=== PATIENT | female | born 1970 | race Caucasian/White ===

== ENCOUNTER → 2016-07-29 | Outpatient (CLI) | payer BC ==
[~2016-07-29] MED LIST: BUPR75TA8 PO; CALC500C70 PO; CETI10TA10 PO; CITA40TA12 PO; CLC/300 PO; CLIN300C2 PO; DESV100T2 PO; DOXY100C76 PO; IBUP1CAP9 PO; LAMO25TA PO; METH1TAB81 PO; OXYC1TAB3 PO; SPR25 PO; WLLSR150 PO
[2016-07-29 13:45] LABS: BLOOD UREA NITROGEN 9 mg/dl (7-18); CREATININE 0.76 mg/dl (0.60-1.20); GLUCOSE 83 mg/dl (70-99)
[2016-07-29 13:46] LABS: ALT/SGPT 17 U/L (12-78); BUN/CREATININE RATIO 11.3 (10-20); CALCIUM 8.7 mg/dl (8.5-10.1); CARBON DIOXIDE 28 mmol/L (21-32); CHLORIDE 106 mmol/L (98-107); CHOLESTEROL 180 mg/dl (0-200); POTASSIUM 4.2 mmol/L (3.5-5.1); SODIUM 139 mmol/L (136-145); TRIGLYCERIDES 68 mg/dl (0-150); VERY LOW DENSITY LIPOPROT CALC 14 mg/dl
[2016-07-29 14:01] LABS: ALB/GLOB RATIO 1.4 (0.9-2); ALKALINE PHOSPHATASE 45 U/L (45-117); AST/SGOT 14 U/L (15-37); CHOLESTEROL/HDL RATIO 3.7; HDL CHOLESTEROL 49 mg/dl; LDL CHOLESTEROL CALCULATED 117 mg/dl
== END | disposition home or self-care (01) ==
LOC: C.LABBFT 08:11
PROVIDERS: ATTEND Nurse Practitioner
DX: Z00.00 Encounter for general adult medical examination without abnormal findings (principal); G43.909 Migraine, unspecified, not intractable, without status migrainosus; L70.9 Acne, unspecified

== ENCOUNTER 2017-01-15 06:50 | Emergency (ER) | payer BC ==
[~2017-01-15] VITALS: Ht 160 cm; Wt 81.1 kg
[~2017-01-15 06:50] MED LIST changes: -CITA40TA12 PO; -CLC/300 PO; -CLIN300C2 PO; -DOXY100C76 PO; -METH1TAB81 PO; -OXYC1TAB3 PO; -SPR25 PO; -WLLSR150 PO
[2017-01-15 06:53] VITALS: TEMP 37; Ht 160 cm; Wt 81.1 kg
[2017-01-15] MEDS ORDERED: SODIUM CHLORIDE 0.9% 1000ML 1,000 ML IV STA (07:05)
[2017-01-15] MEDS ORDERED: MoRPHine SULFATE 4 MG/ML 1 ML CARP\\VIAL IV STA (07:05)
[2017-01-15] MEDS ORDERED: CLINDAMYCIN 600 MG/54 ML D5W IV STA (07:05)
--- NOTE | 2017-01-15 07:13 | EMERGENCY ROOM VISIT NOTE ---
History First contact with patient: 06:58 Chief Complaint: DENTAL PAIN Stated Complaint: SWOLLEN CHEEK,GUMS,THROBBING TEETH FROM ROOT CANAL Nursing Triage Summary: Right upper dental pain, had a root canal on Thursday. States saw an audio visual design engineer yesterday, took one dose of antibiotics, today still with pain and increased swelling on the right side of face. History of Present Illness The patient is a 46 year old female who presents to the Emergency Room via private vehicle accompanied by female with complaints of "swollen G, gums, throbbing T root canal". The patient states that Thursday, she had a root canal on tooth #3. This is in the superior right posterior portion of her mouth. She states this was performed by [facility] endodontics. Specifically Dr. Gabriel. She states that yesterday she had swelling on the right side of the cheek, and called the endodontics office who recommended clindamycin. She has been taking ibuprofen and Tylenol without relief. She rates her current pain as a 7/10. She states that around 2:30 AM, she woke up and noted that the right side of her face was much larger than it had been in the past. She then came here for further evaluation and management. She denies any fevers, chills, pain with movement of the right eye, or chance of . She last had her dose of clindamycin at 5:30 AM this morning. This was 300 mg. She had the first dose prior. Review of Systems A complete 6-point Review of Systems was discussed with the patient, with pertinent positives and negatives listed in the History of Present Illness. All remaining Review of Systems questions can be considered negative unless otherwise specified. Past Medical/Surgical History Medical Problems: (1) Thalassemia minor Surgical Problems: (1) S/P tonsillectomy Family History No pertinent. Social History Smoking Status: Never Smoker Patient lives locally. Current/Historical Medications Scheduled Bupropion HCl (Bupropion HCl Sr), 300 MG PO QAM Citalopram Hydrobromide (Celexa), 40 MG PO QAM Clindamycin HCl (Clindamycin HCl), 300 MG PO QID Spironolactone (Spironolactone), 50 MG PO AMPM Scheduled PRN Oxycodone Ir (Roxicodone Ir), 1-2 TAB PO Q6 PRN for Pain Physical Exam Vital Signs Date Time Temp Pulse Resp B/P (MAP) Pulse Ox O2 Delivery O2 Flow Rate FiO2 01/15/17 08:12 60 15 134/79 100 Room Air 01/15/17 06:53 37.0 81 16 121/68 97 Room Air Physical Exam VITAL SIGNS - Vital signs and nursing notes were reviewed. Stable. GENERAL -46-year-old female appearing her stated age who is in no acute distress. Communicates well with provider and answers questions appropriately. SKIN - Without rashes. There is no erythema to the skin of the face, rather there is a large amount of edema of the right cheek. This extends from the angle of the mandible, to the chin up to the right eye region. HEAD - NC/AT. No davila signs or raccoons eyes. EYES - PERRL with EOMI bilaterally. Sclera anicteric. No hyphema. EARS - No deformities of external structures noted on gross examination bilaterally. No pain elicited with palpation of the tragus bilaterally. Unremarkable. NOSE - Midline and without cyanosis. No epistaxis or purulent drainage noted. Septum midline without deviation or septal hematoma noted. MOUTH/OROPHARYNX - Without perioral cyanosis. Buccal mucosa pink and moist and without leukoplakia. Tongue midline with equal elevation of palate bilaterally. No tonsillar hypertrophy, erythema, or exudates noted. Fair dentition noted. NECK - Neck with FROM. Supple to palpation. Minimal anterior cervical lymphadenopathy noted. No nuchal rigidity. LUNGS - Chest wall symmetric without accessory muscle use, intercostals retractions, or central cyanosis. Normal vesicular breath sounds CTA B/L. No wheezes, rales, or rhonchi appreciated. CARDIAC - RRR with S1/S2. No murmur, rubs, or gallops appreciated. NEUROLOGIC - Cranial nerves II through XII grossly intact. Sensory intact to light touch throughout. Medical Decision & Procedures Laboratory Results 01/15/17 07:16 Red Blood Count 5.06, Mean Corpuscular Volume 62.8, Mean Corpuscular Hemoglobin 19.8, Mean Corpuscular Hemoglobin Concent 31.4, Neutrophils (%) (Auto) 79.4, Lymphocytes (%) (Auto) 9.5, Monocytes (%) (Auto) 9.5, Eosinophils (%) (Auto) 1.2 , Basophils (%) (Auto) 0.1, Neutrophils # (Auto) 8.41, Lymphocytes # (Auto) 1.01 , Monocytes # (Auto) 1.01, Eosinophils # (Auto) 0.13, Basophils # (Auto) 0.01 01/15/17 07:16 Test 01/15/17 07:16 White Blood Count 10.60 K/uL (4.8-10.8) Red Blood Count 5.06 M/uL (4.2-5.4) Hemoglobin 10.0 g/dL (12.0-16.0) Hematocrit 31.8 % (37-47) Mean Corpuscular Volume 62.8 fL (80-100) Mean Corpuscular Hemoglobin 19.8 pg (25-34) Mean Corpuscular Hemoglobin Concent 31.4 g/dl (32-36) Platelet Count 357 K/uL (130-400) Neutrophils (%) (Auto) 79.4 % Lymphocytes (%) (Auto) 9.5 % Monocytes (%) (Auto) 9.5 % Eosinophils (%) (Auto) 1.2 % Basophils (%) (Auto) 0.1 % Neutrophils # (Auto) 8.41 K/uL (1.4-6.5) Lymphocytes # (Auto) 1.01 K/uL (1.2-3.4) Monocytes # (Auto) 1.01 K/uL (0.11-0.59) Eosinophils # (Auto) 0.13 K/uL (0-0.5) Basophils # (Auto) 0.01 K/uL (0-0.2) RDW Standard Deviation 36.7 fL (36.4-46.3) RDW Coefficient of Variation 16.3 % (11.5-14.5) Immature Granulocyte % (Auto) 0.3 % Immature Granulocyte # (Auto) 0.03 K/uL (0.00-0.02) Hypogranular Neutrophils 1+ Hypersegmented Polys 1+ Microcytosis PRESENT Tear Drop Cells 1+ Ovalocytes 1+ Anion Gap 4.0 mmol/L (3-11) Est Creatinine Clear Calc Drug Dose 104.9 ml/min Estimated GFR () 122.7 Estimated GFR (Non- 105.9 BUN/Creatinine Ratio 9.6 (10-20) Calcium Level 9.0 mg/dl (8.5-10.1) Total Bilirubin 1.1 mg/dl (0.2-1) Aspartate Amino Transf (AST/SGOT) 15 U/L (15-37) Alanine Aminotransferase (ALT/SGPT) 22 U/L (12-78) Alkaline Phosphatase 62 U/L (45-117) Total Protein 7.5 gm/dl (6.4-8.2) Albumin 3.9 gm/dl (3.4-5.0) Globulin 3.6 gm/dl (2.5-4.0) Albumin/Globulin Ratio 1.1 (0.9-2) Medications Administered Medications (Trade) Dose Ordered Sig/Binh Route Start Time Stop Time Status Last Admin Dose Admin Sodium Chloride 1,000 ml @ 999 mls/hr Q1H1M STAT IV 01/15/17 07:05 01/15/17 08:05 DC 01/15/17 07:18 999 MLS/HR Morphine Sulfate (MoRPHine SULFATE INJ) 4 mg NOW STAT IV 01/15/17 07:05 01/15/17 07:09 DC 01/15/17 07:19 4 MG Clindamycin Phosphate (Cleocin 600mg/ 54ml D5W) 600 mg NOW STAT IV 01/15/17 07:05 01/15/17 07:09 DC 01/15/17 07:24 600 MG Oxycodone HCl (Roxicodone Immediate Rel Tab) 5 mg NOW STAT PO 01/15/17 08:05 01/15/17 08:06 DC 01/15/17 08:12 5 MG Medical Decision Patient was seen and evaluated as above. She presents to us today with right- sided facial swelling. This acutely worsened this morning around 2:30 AM. She had her last dose of clindamycin at 5:30 AM. Her vital signs are stable, and she is afebrile. She rates her pain as a 7/10. She will be given 600 mg of Clindamycin IV, to increase her overall load of clindamycin, as well as morphine for her pain. She was given normal saline. On examination there is cheek swelling, but her vital signs are stable. There is no concerning leukocytosis on her blood work. Because she had 300 mg earlier today, I believe the sixth her milligram intravenous dose will be the best option, as she is penicillin allergic. She is also allergic to sulfa drugs. The maximum dose of clindamycin per day is 2700 mg. I believe that if she continues the rest of clindamycin is 300 mg every 6 following this administration she will stay safely within this dosing range. I recommended she call her audio visual design engineer to schedule follow-up regarding today's visit for recheck. At this time she does not meet any criteria for admission, and is well on examination. She was feeling slightly better with pain medication, and was offered more IV pain medication, but preferred to have the pill form that I was going to send her home with. She was felt stable for discharge. She was given 1 oxycodone IR will be discharged home with a short prescription for this. She is to return with worsening. It was identified that she was able to call her audio visual design engineer to schedule follow-up later in the day. She was educated upon management, educated upon worrisome symptoms in which to return, had questions answered prior to discharge, and was discharged. Her lab work was discussed with her. In evaluation treatment this patient following differential diagnoses were entertained: Abscess, cellulitis, postoperative swelling, among others. Impression Primary Impression: Odontalgia Additional Impression: Anemia Departure Information Dispostion Home / Self-Care Condition GOOD Prescriptions Oxycodone Ir (Roxicodone Ir) 5 Mg Tab 1-2 TAB PO Q6 Y for Pain, #15 TAB For Initial Treatment Prov: Rolf Carraqsuillo PA-C 01/15/17 Referrals Jeny Mosher, C.R.N.PAdan (PCP) Patient Instructions My [facility] Additional Instructions You have been treated in the Emergency Department for Dental Pain. You have received pain medicine in the emergency department which impairs your ability to operate a vehicle. It is illegal for you to drive after receiving these medicines. You have been prescribed Oxy IR to be used for pain control. This is a narcotic medication. You cannot drive or consume alcohol while on this medicine. This medicine should only be used for pain that cannot be controlled with over-the- counter pain medicines. Be careful as these may interact with your other medications. You were previously prescribed clindamycin to be taken as previously prescribed. This is an antibiotic. All antibiotics have the potential to cause diarrhea. Stop this medication and contact a medical provider if you were to develop any significant adverse side effects including: wheezing, shortness of breath, passing out, vomiting, or a diffuse rash. Always take antibiotics as directed and COMPLETE the ENTIRE course regardless of the improvement of your symptoms. For pain control, you can use the following [id number] medicines (if >12 yo): He may continue the medications recommended to buy the audio visual design engineer. Refrain from smoking cigarettes or using chewing tobacco until you have been evaluated by your dentist. Keeping beverages lukewarm and consuming soft foods can decrease your pain. Warm compresses over the affected area may offer some relief. Please call the audio visual design engineer office as soon as possible to schedule follow-up from today's visit regarding your procedure there. Return to the emergency department if you develop the following symptoms despite treatment course outlined above: fever, intractable pain, increased redness, swelling, or purulent discharge. As we discussed if this would worsen please return immediately. Problem Qualifiers
[2017-01-15] MEDS ORDERED: CLC/300 PO (07:14)
[2017-01-15] MEDS ORDERED: WLLSR150 PO (07:14)
[2017-01-15] MEDS ORDERED: CITA40TA12 PO (07:14)
[2017-01-15] MEDS ORDERED: SPR25 PO (07:14)
[2017-01-15 07:25] LABS: BASO % 0.1 %; BASO ABS # 0.01 K/uL (0-0.2); EOS % 1.2 %; HEMATOCRIT 31.8 % (37-47); IG% 0.3 %; LYMPH % 9.5 %; LYMPH ABS # 1.01 K/uL (1.2-3.4); MEAN CELL VOLUME 62.8 fL (80-100); MEAN CORPUSCULAR HEMOGLOBIN 19.8 pg (25-34); MEAN CORPUSCULAR HGB CONC 31.4 g/dl (32-36); MONO % 9.5 %; NEUT % 79.4 %; PLATELET COUNT 357 K/uL (130-400); RED BLOOD COUNT 5.06 M/uL (4.2-5.4)
[2017-01-15 07:45] LABS: BUN/CREATININE RATIO 9.6 (10-20); CREATININE 0.69 mg/dl (0.60-1.20); POTASSIUM 3.8 mmol/L (3.5-5.1)
[2017-01-15 07:48] LABS: ALB/GLOB RATIO 1.1 (0.9-2)
[2017-01-15 07:56] LABS: COMPLETE YES; HYPERSEGMENTED POLYS 1+; MICROCYTOSIS PRESENT; OVALOCYTES 1+; TEAR DROP CELLS 1+
[2017-01-15] MEDS ORDERED: OXYCODONE HCL IR 5 MG TAB (IMMEDIATE RELEASE) PO STA (08:05)
[2017-01-15] MEDS ORDERED: OXYC1TAB3 PO (08:06)
[2017-01-15 08:12] VITALS: BP 134/79; PULSE 60; O2SAT 100
--- NOTE | 2017-01-15 12:36 | Pharmacy Progress Note ---
ED Pharmacist Progress Note Date of Service: Jan 15, 2017. Mother called in asking what IV medication were administered to daughter during ER visit. I asked to speak with daughter to confirm she gave permission for me to reveal this information to her mother, to which she consented. I then informed her that NS, clindamycin, and morphine had been given IV.
== END 2017-01-15 08:20 | disposition home or self-care (01) ==
LOC: C.EDB 06:52
DX: K08.89 Other specified disorders of teeth and supporting structures (principal); D64.9 Anemia, unspecified; Z79.899 Other long term (current) drug therapy

== ENCOUNTER 2017-01-23 01:49 | Inpatient (IN) | payer BC ==
[~2017-01-23] VITALS: Ht 160 cm; Wt 78.7 kg
[~2017-01-23 01:49] MED LIST changes: -BUPR75TA8 PO; -CALC500C70 PO; -CETI10TA10 PO; +CITA40TA12 PO; +CLC/300 PO; -DESV100T2 PO; -IBUP1CAP9 PO; -LAMO25TA PO; +OXYC1TAB3 PO; +SPR25 PO; +WLLSR150 PO
[2017-01-23] MEDS ORDERED: ONDANSETRON INJ 2 MG/ML 2 ML VIAL IV STA (02:04)
[2017-01-23] MEDS ORDERED: METRONIDAZOLE 500MG / 100ML NSS IV STA (02:04)
[2017-01-23] MEDS ORDERED: CEFTRIAXONE SOD INJ 1 GM ADDVIAL IV STA (02:04)
[2017-01-23] MEDS ORDERED: MoRPHine SULFATE 4 MG/ML 1 ML CARP\\VIAL IV ONE ×3 (02:15→05:30)
[2017-01-23] MEDS ORDERED: CLINDAMYCIN IV 900 MG in DEXTROSE 5% 100ML 100 ML IV ONE (02:15)
[2017-01-23] MEDS ORDERED: SODIUM CHLORIDE 0.9% 1000ML 1,000 ML IV ONE (02:15)
[2017-01-23] MEDS ORDERED: OPTIRAY 320 IV PRN (02:15)
[2017-01-23] MEDS ORDERED: OXYC1TAB3 PO (02:53)
[2017-01-23] MEDS ORDERED: METH1TAB81 PO (02:53)
[2017-01-23 03:03] LABS: BASO % 0.2 %; BASO ABS # 0.02 K/uL (0-0.2); EOS % 0.4 %; HEMATOCRIT 28.1 % (37-47); IG% 0.2 %; LYMPH % 6.7 %; LYMPH ABS # 0.83 K/uL (1.2-3.4); MEAN CELL VOLUME 61.5 fL (80-100); MEAN CORPUSCULAR HEMOGLOBIN 19.9 pg (25-34); MEAN CORPUSCULAR HGB CONC 32.4 g/dl (32-36); MONO % 7.4 %; NEUT % 85.1 %; PLATELET COUNT 475 K/uL (130-400); RED BLOOD COUNT 4.57 M/uL (4.2-5.4); WHITE BLOOD COUNT 12.36 K/uL (4.8-10.8)
[2017-01-23 03:21] LABS: BUN/CREATININE RATIO 16.2 (10-20); CALCIUM 8.5 mg/dl (8.5-10.1); CREATININE 0.61 mg/dl (0.60-1.20); POTASSIUM 3.8 mmol/L (3.5-5.1)
[2017-01-23 03:29] LABS: COMPLETE YES; HYPOCHROMIA PRESENT; MICROCYTOSIS PRESENT; OVALOCYTES 1+
[2017-01-23] MEDS ORDERED: MAGNESIUM HYDROXIDE SUSP 30 ML UDC PO PRN (05:45)
[2017-01-23] MEDS ORDERED: CLINDAMYCIN IV 900 MG in DEXTROSE 5% 100ML 100 ML IV SCH (05:45)
[2017-01-23] MEDS ORDERED: ALUMINUM/MAGNESIUM/SIMETH (MAALOX MAX) 30 ML UDC PO PRN (05:45)
[2017-01-23] MEDS ORDERED: ONDANSETRON INJ 2 MG/ML 2 ML VIAL IV PRN (05:45)
[2017-01-23] MEDS ORDERED: POLYETHYLENE (MIRALAX) 17 GM PACK PO PRN (06:00)
--- NOTE | 2017-01-23 06:07 | History and Physical ---
History & Physical Date & Time of Service: Jan 23, 2017 at 05:51 Chief Complaint: Face Swelling Primary Care Physician: Jeny Mosher C.R.N.P. History of Present Illness Source: patient, family (mother) The patient is a pleasant 46 year old female with a history of thalassemia, depression who presents with worsening facial swelling on the right side of her face. The patient reports acutely worsening right facial pain and swelling. She reports an achy/sharp pain 8/10 to the right face in the maxillary area. She feels it under her eye and in front of the right ear. She feels some tension in her neck but no pain She denies any shortness of breath, denies her throat closing off. She was seen the ED 10 days ago. For dental pain following a root canal on the right superior jaw. She was started on Clindamycin by her dentist. She was seen at the ED who recommended continuing the antibiotics and schedule outpatient follow-up with her dentist. She saw her dentist 2 days and states that they did some dental manipulation and recommended she continue on with antibiotics until completion. Since then she feels the swelling in her face has been steadily worsening in addition to the pain. She also arrives on Medrol Dose-abran. In the ED a CT scan of her face showed a right sided facial abscess in addition to submandibular swelling. She is being admitted for failed outpatient antibiotic treatment Past Medical/Surgical History Medical Problems: (1) Thalassemia minor Status: Chronic Surgical Problems: (1) S/P tonsillectomy Status: Resolved Social History Smoking Status: Never Smoker Smokeless Tobacco Use: No Alcohol Use: none Drug Use: none Marital Status: single Housing status: lives with family Occupational Status: employed ([employer]) Immunizations History of Influenza Vaccine: Yes History of Tetanus Vaccine?: Unknown History of Pneumococcal: No History of Hepatitis B Vaccine: No Allergies Coded Allergies: Penicillins (Verified Allergy, Unknown, RASH, 01/23/17) Sulfa Drugs (Verified Allergy, Unknown, Hives, 01/23/17) Home Medications Scheduled Bupropion HCl (Bupropion HCl Sr), 300 MG PO QAM Citalopram Hydrobromide (Celexa), 40 MG PO QAM Clindamycin HCl (Clindamycin HCl), 300 MG PO QID Methylprednisolone (Medrol), 4 MG PO DIRECTED Spironolactone (Spironolactone), 50 MG PO AMPM Scheduled PRN Oxycodone Immediate Rel Tab (Roxicodone Ir), 1-2 TAB PO Q6H PRN for Severe Pain Review of Systems Constitutional: No fever, No chills, No sweats Eyes: No eye pain, No redness, No discharge, No diplopia ENT: No hearing loss, No sore throat, No tinnitus Respiratory: No sputum, No wheezing, No shortness of breath, No dyspnea on exertion, No dyspnea at rest Cardiovascular: No chest pain, No claudication, No palpitations Abdomen: No nausea, No vomiting, No diarrhea, No constipation Musculoskeletal: No joint pain, No muscle pain, No swelling, No calf pain Genitourinary - Female: No urinary frequency, No urinary urgency, No urinary incontinence Neurologic: No memory loss, No numbness/tingling, No vertigo Endocrine: No fatigue, No excessive thirst, No excessive urination Hematologic / Lymphatic: No abnormal bleeding/bruising, No swollen lymph nodes , No night sweats Integumentary: No rash, No new/changing skin lesions, No color change Physical Exam Vital Signs Date Time Temp Pulse Resp B/P (MAP) Pulse Ox O2 Delivery O2 Flow Rate FiO2 01/23/17 04:59 74 01/23/17 04:53 100 Room Air 01/23/17 04:14 80 18 136/71 97 Room Air 01/23/17 01:51 37.4 85 16 144/92 98 Room Air General Appearance: WD/WN, no apparent distress, + mild distress Head: normocephalic, atraumatic Eyes: EOMI (swelling under right eye; but no double vision or pain with right eye movement), + pertinent finding ENT: TMs normal, + trismus, + pertinent finding (Right maxillary swelling, warmth, and tenderness; tender submandibular area on the right side) Respiratory/Chest: chest non-tender, lungs clear, no respiratory distress Cardiovascular: regular rate, rhythm, no gallop, no murmur Abdomen/GI: normal bowel sounds, non tender, soft Back: no CVA tenderness, no muscle spasm Extremities/Musculoskelatal: no calf tenderness, no pedal edema Neurologic/Psych: alert, normal mood/affect, oriented x 3 Skin: normal color, warm/dry, no rash Lymphatic: no adenopathy Diagnostics Laboratory Results Results Past 24 Hours Test 01/23/17 02:25 01/23/17 02:43 Range/Units White Blood Count 12.36 4.8-10.8 K/uL Red Blood Count 4.57 4.2-5.4 M/uL Hemoglobin 9.1 12.0-16.0 g/dL Hematocrit 28.1 37-47 % Mean Corpuscular Volume 61.5 80-100 fL Mean Corpuscular Hemoglobin 19.9 25-34 pg Mean Corpuscular Hemoglobin Concent 32.4 32-36 g/dl Platelet Count 475 130-400 K/uL Neutrophils (%) (Auto) 85.1 % Lymphocytes (%) (Auto) 6.7 % Monocytes (%) (Auto) 7.4 % Eosinophils (%) (Auto) 0.4 % Basophils (%) (Auto) 0.2 % Neutrophils # (Auto) 10.51 1.4-6.5 K/uL Lymphocytes # (Auto) 0.83 1.2-3.4 K/uL Monocytes # (Auto) 0.92 0.11-0.59 K/uL Eosinophils # (Auto) 0.05 0-0.5 K/uL Basophils # (Auto) 0.02 0-0.2 K/uL RDW Standard Deviation 34.8 36.4-46.3 fL RDW Coefficient of Variation 15.9 11.5-14.5 % Immature Granulocyte % (Auto) 0.2 % Immature Granulocyte # (Auto) 0.03 0.00-0.02 K/uL Hypochromasia PRESENT Microcytosis PRESENT Ovalocytes 1+ Sodium Level 138 136-145 mmol/L Potassium Level 3.8 3.5-5.1 mmol/L Chloride Level 105 98-107 mmol/L Carbon Dioxide Level 26 21-32 mmol/L Anion Gap 7.0 3-11 mmol/L Blood Urea Nitrogen 10 7-18 mg/dl Creatinine 0.61 0.60-1.20 mg/dl Est Creatinine Clear Calc Drug Dose 116.9 ml/min Estimated GFR () 127.8 Estimated GFR (Non- 110.3 BUN/Creatinine Ratio 16.2 10-20 Random Glucose 96 70-99 mg/dl Calcium Level 8.5 8.5-10.1 mg/dl Total Bilirubin 0.6 0.2-1 mg/dl Aspartate Amino Transf (AST/SGOT) 6 15-37 U/L Alanine Aminotransferase (ALT/SGPT) 16 12-78 U/L Alkaline Phosphatase 72 45-117 U/L Total Protein 7.0 6.4-8.2 gm/dl Albumin 3.5 3.4-5.0 gm/dl Globulin 3.5 2.5-4.0 gm/dl Albumin/Globulin Ratio 1.0 0.9-2 Bedside Lactic Acid Venous 0.80 0.90-1.70 mmol/L Microbiology Results 01/23/17 Blood Culture, Received Pending 01/23/17 Blood Culture, Received Pending Diagnostic Radiology Right-sided facial abscess; in-house report pending Impression Assessment and Plan 46 year old female with right maxillary abscess with submandibular swelling post -root canal 10 days prior. She has failed outpatient antibiotic therapy. Our plan for her is as follows: Right Maxillary Abscess - NPO - IVF NSS at 125 ml/hr - Start IV Primaxin with reflex ID consult - Consult Oromaxillary surgery for further recommendations - Patient came in Methylprednisolone taper: was suppose to get 12 mg PO today -- > 8 mg PO tomorrow 4 mg PO day after Will D/C medrol and give 15 mg IV solu-medrol today; taper per primary team Right Submandibular Swelling - Normal respiratory status at this time - Monitor closely in telemetry - Consult ENT Thyroid Nodule - Incidental; per day team to work-up Depression - Continue Wellbutrin - Continue Celexa Acne - Continue Spironolactone DVT Prophylaxis - SCD Knee, YAYA Hose Code Status - Level I Full Code Disposition - Telemetry to monitor for airway stability Resident Physician Supervision Note: I was present with Dr. Castillo during the history and exam. I discussed the case with the resident and agree with the findings and plan as documented in the note. Any exceptions or clarifications are listed here: 46 y/o F Hx Thalassemia, depression - dental procedure 10 days prior - presents with R facial swelling and pain - had been taking Clinda for [address] indicates Maxillary abscess - pt has considerable submandibular swelling as well - concern for airway compromise OE AAO x 3 Considerable swelling from neck to periorbital area on R S1,2 R CTAB NT, ND No CCE P: Placed on Primaxin due to allergies - will be evaluated by ENT - pt may require transfer if maxillofacial surgeon is not available. Monitor airway on telemetry Documented By: Jose Mcgill Level of Care Telemetry Resuscitation Status FULL RESUSCITATION VTE Prophylaxis VTE Risk Assessment Done? Y/N: Yes Risk Level: Moderate Given or contraindicated: T.E.D. Stockings, SCD's
[2017-01-23] MEDS ORDERED: IV FLUIDS COMPLETED PRN (06:30)
[2017-01-23] MEDS ORDERED: METHYLPREDNISOLONE IV 15 MG in SYRINGE 0 ML IV SCH (07:15)
--- NOTE | 2017-01-23 07:47 | DIAGNOSTIC IMAGING REPORT ---
SOFT TISSUE NECK WITH CLINICAL HISTORY: 46 years-old Female presenting with Right side facial swelling/dental infx?. TECHNIQUE: Multidetector CT of the neck was performed after the administration of intravenous contrast. IV contrast: 110 mL of Optiray 320. A dose lowering technique was used consistent with the principles of ALARA (as low as reasonably achievable). COMPARISON: 04/29/2011. CT DOSE (mGy.cm): The estimated cumulative dose is 576.55 mGy.cm. FINDINGS: Investigator Vice topogram: Unremarkable. Mucosal thickening in the right maxillary sinus and minimally in the left maxillary sinus. Extensive inflammatory change along the right face with a focal rim-enhancing 2.7 x 1.8 cm fluid collection along the buccal aspect of the right maxilla, consistent with abscess. No apparent cortical defect in the adjacent maxilla or lateral wall of the right maxillary sinus. Minimal periapical lucency noted at the right maxillary second molar, which may be the source of the presumed odontogenic infection. No other periapical abscess is noted in the maxillary or mandibular teeth. Deep tissue planes of the face are preserved. The fat within the right pterygopalatine fossa is preserved although the fluid collection minimally tracks toward the right lateral pterygoid muscle. Multiple prominent lymph nodes, right greater than left, likely reactive. Mild subcutaneous infiltration extends to the submandibular region but not to the superior mediastinum. Retropharyngeal space preserved. Vessels patent. Subcentimeter nodule in the right thyroid lobe as well as a few additional tiny thyroid nodules. Limited intracranial evaluation within normal limits. Cervical spine normal. Lung apices clear. IMPRESSION: Findings most consistent with odontogenic abscess in the right maxillary region measuring up to 2.7 cm. This is associated with adjacent periapical lucency/periapical abscess at the right maxillary second molar, which is the presumed source of infection, though no cortical breakthrough in the maxilla is apparent. Reactive lymph nodes. Electronically signed by: Arnoldo Torres M.D. 01/23/2017 7:46 AM Dictated Date/Time: 01/23/2017 7:38 AM
[2017-01-23 07:51] VITALS: BP 135/81; PULSE 74; TEMP 37.5; O2SAT 97
[2017-01-23 08:00] VITALS: BP 135/81; PULSE 74; TEMP 37.5; O2SAT 97; Ht 160 cm; Wt 78.7 kg
[2017-01-23] MEDS: SPIRONOLACTONE 25 MG TAB PO SCH ×2 (08:00→16:47)
[2017-01-23] MEDS: CITALOPRAM 40 MG TAB PO SCH (09:22)
[2017-01-23] MEDS: BuPROPion SR 150 MG TABCR PO SCH (09:22)
[2017-01-23] MEDS: NSS + 20MEQ KCL 1000ML 1,000 ML IV SCH ×2 (09:22→15:23)
[2017-01-23] MEDS: MoRPHine SULFATE 4 MG/ML 1 ML CARP\\VIAL IV PRN ×3 (09:23→15:42)
[2017-01-23] MEDS: IMIPENEM/CILASTATIN IV 500 MG in DEXTROSE 5% 100ML 100 ML IV SCH ×3 (09:23→20:43)
--- NOTE | 2017-01-23 10:19 | Progress Note ---
Progress Note Date of Service Jan 23, 2017. Progress Note ID Consult Dictated #[id number] A/P: 1. R maxillary abscess 2. Leukocytosis -Continue Imipenem for now, add vanco -Will likely need surgical intervention with abx for cure, ? ENT vs OMFS -Please send fluid for culture, blood cultures pending -thank you
[2017-01-23] MEDS ORDERED: VANCOMYCIN CONSULT ACTIVE PRN (10:45)
[2017-01-23] MEDS ORDERED: VANCOMYCIN INJ 2,000 MG in SODIUM CHLORIDE 0.9% 500ML 500 ML IV SCH (11:00)
[2017-01-23] MEDS ORDERED: PANTOprazole INJ 40 MG in SYRINGE 0 ML IV ONE (11:45)
--- NOTE | 2017-01-23 11:57 | INFECT. DISEASE CONSULTATION ---
DATE OF CONSULTATION: 01/23/2017 REQUESTING PHYSICIAN: Dr. Mcgill. HISTORY OF PRESENT ILLNESS: This is a 46-year-old female who was admitted to the hospital with worsening facial swelling. She had a root canal done as an outpatient last Thursday. She followed up 1 day afterwards because she had pain and facial swelling. She was placed on oral clindamycin and was taking this at home. She states Thursday and , she felt somewhat better, but throughout the end of last week and through the weekend, she had worsening facial pain and swelling. She did present here to the ER and was discharged home with plans to continue clindamycin and follow up with her dentist. She states that she followed up with her dentist yesterday and they did see a small opening with drainage in the dental office. She continued to have worsening symptoms and significant facial swelling that caused closure of her right eye and she presented back to the Emergency Room. She did undergo a CAT scan yesterday, which showed a 2.7 x 1.8 cm right axilla abscess. Her white blood cell count was elevated at 12.3. She has been afebrile. She was placed on imipenem empirically and infectious disease was consulted for imipenem use. She currently has significant pain. She does not have an appetite. She is n.p.o. for questionable surgical exploration. An ear, nose, and throat consultation is pending. She denies any fevers or chills. She denies any difficulty with breathing or swallowing. She denies any drainage into the mouth. Her only complaint is her pain and swelling. She denies chest pain, cough, shortness of breath, nausea, vomiting or diarrhea. She was tolerating clindamycin well. PAST MEDICAL HISTORY: Significant for thalassemia. PAST SURGICAL HISTORY: Significant for tonsillectomy done last week. SOCIAL HISTORY: Negative for tobacco use, alcohol use or drug use. ALLERGIES: SHE HAS ALLERGIES TO PENICILLIN AND SULFA, WHICH CAUSED HIVES. MEDICATIONS: Include Wellbutrin, Celexa, spironolactone, imipenem, potassium, MiraLax, Tylenol, Maalox, milk of magnesia, Zofran and morphine. PHYSICAL EXAMINATION: VITAL SIGNS: She is afebrile, pulse 74, respiratory rate 18, blood pressure 135/81, and oxygen saturation is 97%-100% on room air. GENERAL: She is awake, alert and oriented x3. She is in mild distress secondary to right facial pain and swelling. HEENT: She does have an ice pack over her right side of her face. She has significant facial edema and this is tender to light touch. There is no erythema. There is no open area. Her eye is swollen shut. She is able to open her mouth and mucous membranes are dry. HEART: Regular. LUNGS: Clear. ABDOMEN: Soft, nontender, and nondistended. EXTREMITIES: There is no bilateral lower extremity edema. SKIN: Without rash. LABORATORY STUDIES: CBC reveals a white blood cell count of 12.3, hemoglobin is 9.1 and platelets are 475. Chemistry panel reveals a sodium of 138, potassium 3.8, chloride 105, bicarbonate 26, BUN 10, creatinine 0.6, and glucose is 96. LFTs are within normal limits. Blood cultures are pending. IMAGING: As above. ASSESSMENT AND PLAN: 1. Right maxillary abscess, status post root canal. 2. Leukocytosis. I will add vancomycin in addition to imipenem. She may benefit from surgical exploration either by maxillofacial surgery and/or ENT. We will follow along with you. Thank you for this consultation.
--- NOTE | 2017-01-23 13:10 | Pharmacy Progress Note ---
Pharmacy Antibiotic Consult Date of Service: Jan 23, 2017. Pharmacy Dosing Scope * Pharmacy is consulted to initiate Vancomycin IV dosing therapy, order appropriate labs and adjust drug dose/frequency. Subjective * The patient is a 46 year old female admitted on Jan 23, 2017 at 05:37 with right maxillary abscess. Objective Height (Feet): 5 Height (Inches): 3.00 Weight (Kilograms): 78.700 Lab Results (24hrs): Test 01/23/17 02:25 01/23/17 02:43 White Blood Count 12.36 K/uL (4.8-10.8) Red Blood Count 4.57 M/uL (4.2-5.4) Hemoglobin 9.1 g/dL (12.0-16.0) Hematocrit 28.1 % (37-47) Mean Corpuscular Volume 61.5 fL (80-100) Mean Corpuscular Hemoglobin 19.9 pg (25-34) Mean Corpuscular Hemoglobin Concent 32.4 g/dl (32-36) Platelet Count 475 K/uL (130-400) Neutrophils (%) (Auto) 85.1 % Lymphocytes (%) (Auto) 6.7 % Monocytes (%) (Auto) 7.4 % Eosinophils (%) (Auto) 0.4 % Basophils (%) (Auto) 0.2 % Neutrophils # (Auto) 10.51 K/uL (1.4-6.5) Lymphocytes # (Auto) 0.83 K/uL (1.2-3.4) Monocytes # (Auto) 0.92 K/uL (0.11-0.59) Eosinophils # (Auto) 0.05 K/uL (0-0.5) Basophils # (Auto) 0.02 K/uL (0-0.2) RDW Standard Deviation 34.8 fL (36.4-46.3) RDW Coefficient of Variation 15.9 % (11.5-14.5) Immature Granulocyte % (Auto) 0.2 % Immature Granulocyte # (Auto) 0.03 K/uL (0.00-0.02) Hypochromasia PRESENT Microcytosis PRESENT Ovalocytes 1+ Sodium Level 138 mmol/L (136-145) Potassium Level 3.8 mmol/L (3.5-5.1) Chloride Level 105 mmol/L (98-107) Carbon Dioxide Level 26 mmol/L (21-32) Anion Gap 7.0 mmol/L (3-11) Blood Urea Nitrogen 10 mg/dl (7-18) Creatinine 0.61 mg/dl (0.60-1.20) Est Creatinine Clear Calc Drug Dose 116.9 ml/min Estimated GFR () 127.8 Estimated GFR (Non- 110.3 BUN/Creatinine Ratio 16.2 (10-20) Random Glucose 96 mg/dl (70-99) Calcium Level 8.5 mg/dl (8.5-10.1) Total Bilirubin 0.6 mg/dl (0.2-1) Aspartate Amino Transf (AST/SGOT) 6 U/L (15-37) Alanine Aminotransferase (ALT/SGPT) 16 U/L (12-78) Alkaline Phosphatase 72 U/L (45-117) Total Protein 7.0 gm/dl (6.4-8.2) Albumin 3.5 gm/dl (3.4-5.0) Globulin 3.5 gm/dl (2.5-4.0) Albumin/Globulin Ratio 1.0 (0.9-2) Bedside Lactic Acid Venous 0.80 mmol/L (0.90-1.70) Micro Results: * Blood cultures are pending Recent Pertinent Medications * Patient is also receiving Primaxin 500mg IV every 6 hours. Assessment & Plan Loading dose: 2000 mg IV X 1 (~ 25mg/kg) dose then 1500mg IV (~19mg/kg) every 10 hours. Goal peak level estimate: between 30-40 mcg/mL. Goal trough level estimate: between 16-20 mcg/mL. Trough level is ordered for 1929 on 01/24/17 just prior to the 4th dose. Pharmacy will continue to follow and will adjust dose/frequency as necessary. Thank you
[2017-01-23] MEDS ORDERED: LIDOCAINE/EPINEPHRINE 1% 20 ML VIAL INJ ONE (13:45)
[2017-01-23] MEDS ORDERED: NURSING VERBAL MED ORDER ONE (13:45)
[2017-01-23] MEDS ORDERED: MoRPHine SULFATE 2 MG/ML CARP ONE (13:57)
[2017-01-23] MEDS ORDERED: CETIRIZINE HCL 10 MG TAB PO ONE (14:00)
[2017-01-23] MEDS ORDERED: MoRPHine SULFATE 2 MG/ML CARP IV ONE (14:00)
[2017-01-23] MEDS ORDERED: MoRPHine SULFATE 2 MG/ML CARP IV PRN (14:00)
[2017-01-23 15:21] VITALS: BP 114/68; PULSE 76; TEMP 37.2; O2SAT 95
--- NOTE | 2017-01-23 15:49 | CONSULTATION REPORT ---
DATE OF CONSULTATION: 01/23/2017 DATE OF CONSULTATION: 01/23/2017 HISTORY OF PRESENT ILLNESS: I was contacted by Dr. Escalona. The patient is a 46-year-old female who presented to the Emergency Room last night. She had had a endodontic therapy on the upper right first molar about 2 weeks ago in [facility]. She had been on clindamycin just would not totally resolved and last night it became very swollen. She went to the Emergency Room and was admitted to the service. She had a CAT scan done which showed a 2.7 x 1.8 cm fluid filled collection in the upper right maxilla and just lateral to the right buccinator muscle, no doubt originally from the bad tooth. PAST MEDICAL HISTORY: She takes Celexa and Wellbutrin. ALLERGIES: SHE IS ALLERGIC TO PENICILLIN AND SULFA. She has no other medicines and no known drug allergies. PHYSICAL EXAMINATION: Her latest blood pressure is 135/81, her temperature has been right around 37.5 degrees centigrade. White cell count was up 12.36, 9.1 and 28.1 was hemoglobin and hematocrit. She has been besides getting her normal medicines being given morphine 4 mg IV q. 3-4 p.r.n. She is on imipenem 500 mg q. 6 hours and vancomycin 1500 mg Q10. Clinically, extraorally she has considerable indurated very moderate to large edema of the right buccinator, right buccal area. Her right eye is almost totally closed due to adjacent edema. The induration is from the attachment of the buccinator muscle and maxilla down to the attachment in the mandible. There is no involvement submandibularly. The neck is supple. There maybe a few palpable nodes of minor extent on the right mandible. Intraorally she is guarding, but she opens to about 2-1/2 cm. Oropharynx is a Mallampati type 2, a little bit tough to see but is patent. Also, this was patent on the CT. There is no involvement or airway encroachment. She is indurated on the medial portion of the right buccinator muscle. The salivary gland duct is present and patent. It looks like the upper right first molar is the culprit, it is breaking down. Again, no involvement in the mandible. ASSESSMENT: I reviewed with Dr. Escalona . I think she was also receiving ice and steroids and we stopped both of those. We are going to go with warm compresses and stop the steroids. I reviewed with him I&D is the only thing that is really get her better quicker so we decided to do that at bedside. PROCEDURE: The patient was given 6 mg of morphine IV. I localized intraorally the right mucosa over the buccinator muscle inferior to the parotid duct and opening. Then at that point, a 15 blade was used to make a 3-4 cm incision just through the mucosa. Blunt dissection through the buccinator muscle in the superior direction then allowed probably 4-5 mL of nonsmelling pus to drain. It was cultured. Talala drain was placed and held in place with chromic suture. PLAN: She will continue her antibiotics, warm compresses. The drain will stay in. I will see her in the office in 2 days to remove that and eventually take out tooth #14. They are going to repeat labs and obviously keep an eye on her. If there are any issues in the morning they will call me and I would be happy to see her, otherwise if she improves as we expect then will see her in the office. As soon as we were done with the procedure her right eye was opening probably 50% better. There is a lot of inflammation in the subQ that will have to resolve, but tolerated the procedure very well. Again, follow up in house for at least 24-36 hours, intravenous and followed her in the office.
[2017-01-23 16:00] VITALS: O2SAT 95
--- NOTE | 2017-01-23 16:09 | Family Medicine Progress Note ---
Progress Note Date of Service Jan 23, 2017. Subjective Pt evaluation today including: conversation w/ patient, chart review, lab review The patient was seen and examined at bedside. Continued R face swelling. I was present and assisted in the I&D of the abscess. Patient showed immediate improvement in her right eye visual obstruction. Plan of care was described to the patient and all questions were answered. Constitutional: No fever, No chills, No sweats Respiratory: No cough, No sputum, No wheezing, No shortness of breath Abdomen: No pain, No nausea, No vomiting, No diarrhea, No constipation Musculoskeletal: No joint pain Objective Physical Exam General Appearance: WD/WN, + mild distress Eyes: + pertinent finding (right eye swelling partialy obstructed from swelling ) ENT: + pertinent finding (right face swelling and very tender to palpation from r ear to r clavicle to right side of nose and right eye. ) Neck: supple, + adenopathy present Respiratory/Chest: chest non-tender, lungs clear, normal breath sounds, no respiratory distress, no accessory muscle use Cardiovascular: regular rate, rhythm, no edema, no gallop, no JVD, no murmur Abdomen: normal bowel sounds, non tender, soft, no organomegaly, no pulsatile mass Extremities: no calf tenderness Neurologic/Psychiatric: length control tester II-XII nml as tested, no motor/sensory deficits, alert, normal mood/affect, oriented x 3 Assessment and Plan 46 year old female with right maxillary abscess with submandibular swelling post -root canal 10 days prior. I&D today at bedside by Dr. Richardson. Drain was put in place. We will continue to observe for 24-[address] Richardson will removed drain from mouth on Thursday at his clinic. Await recs on DC Abx. Right Maxillary Abscess s/p I&D with Dr. Richardson on 01/23/17 - Right Eladio drain in place. - Dr. Richardson is available for questions at his personal cell phone (doctor use only: [phone]) - pt should follow up in office on Thursday. - Progress diet from clear liquids as tolerated. - Stop IVF, stop Steroids, Stop PPI for GI Prophylaxis. - c/w IV Primaxin + Vanco and awaiting ID recs for DC Abx. (Day #1) - Sent Gram stain of wound for cultures. Subcentimeter nodule in the right thyroid lobe as well as a few additional tiny thyroid nodules. - Recommend Outpatient follow up. - TSH in hospital will not have any diagnostic utility. Depression - Continue Wellbutrin - Continue Celexa Acne - Continue Spironolactone DVT Prophylaxis - SCD Knee, YAYA Hose Disposition Med Surg FULL CODE. Resident Involvement: Resident Care Provided Care Provided: Adult [facility]
[2017-01-23] MEDS ORDERED: DEXAMETHASONE INJ 4 MG in SYRINGE 0 ML IV SCH (20:00)
[2017-01-23] MEDS: ACETAMINOPHEN 325 MG TAB PO PRN (20:48)
[2017-01-23] MEDS ORDERED: VANCOMYCIN INJ 1,000 MG in SODIUM CHLORIDE 0.9% 250ML 250 ML IV SCH (21:00)
[2017-01-23] MEDS: VANCOMYCIN INJ 1,500 MG in SODIUM CHLORIDE 0.9% 500ML 500 ML IV SCH (23:41)
[2017-01-23 23:54] VITALS: BP 125/75; PULSE 74; TEMP 37.1; O2SAT 100
--- NOTE | 2017-01-24 00:15 | EMERGENCY ROOM VISIT NOTE ---
History First contact with patient: 01:54 Chief Complaint: FACIAL PAIN/INJURY Stated Complaint: FACIAL ABSCESS, SUBMANDIBULAR SWELLING History of Present Illness The patient is a 46 year old female who presents to the Emergency Room with complaints of similar to pain and swelling to the right side of her face. The patient has had dental pain for roughly the past 8 or 9 days. She was initially seen here in this department with this complaint where she was started on clindamycin due to a penicillin and Bactrim allergy. The patient did have improvement of her symptoms while on the clindamycin and actually had a dental appointment earlier today. The patient did not have extensive dental procedure performed, but a cleaning and evaluation was under on. The patient did not have any worsening of her symptoms throughout the day, went to bed as normal, and woke up about 30 minutes ago with significant pain and swelling of the right side of her face. She estimates that she slept for 5 or 6 hours before waking. The patient has not had fever or chills. She has difficulty seeing out of her right eye because she now has swelling of the eyelids. The patient is able to open her mouth without difficulty. She is able to speak and handle her own secretions. She rates the discomfort a 9/10. She is still currently on clindamycin. Review of Systems More than 10 systems were reviewed and otherwise negative with the exception of history of present illness. Past Medical/Surgical History Medical Problems: (1) Facial abscess (2) Submandibular swelling (3) Thalassemia minor Surgical Problems: (1) S/P tonsillectomy Family History No pertinent family history Social History Smoking Status: Never Smoker Smokeless Tobacco Use: No Drug Use: none Marital Status: single Occupation Status: employed ([employer]) Current/Historical Medications Scheduled Bupropion HCl (Bupropion HCl Sr), 300 MG PO QAM Citalopram Hydrobromide (Celexa), 40 MG PO QAM Clindamycin HCl (Clindamycin HCl), 300 MG PO QID Methylprednisolone (Medrol), 4 MG PO DIRECTED Spironolactone (Spironolactone), 50 MG PO AMPM Scheduled PRN Oxycodone Immediate Rel Tab (Roxicodone Ir), 1-2 TAB PO Q6H PRN for Severe Pain Physical Exam Vital Signs Date Time Temp Pulse Resp B/P (MAP) Pulse Ox O2 Delivery O2 Flow Rate FiO2 01/23/17 05:34 76 14 99 01/23/17 04:59 74 01/23/17 04:53 100 Room Air 01/23/17 04:14 80 18 136/71 97 Room Air 01/23/17 01:51 37.4 85 16 144/92 98 Room Air Physical Exam VITALS: Vitals are noted on the nurse's note and reviewed by myself. Vital signs stable. GENERAL: Well-developed, well-nourished, white female who appears in mild-to- moderate discomfort secondary to her stated complaint. HEAD: Significant a notable swelling is appreciated to the right side of the face primarily over the right maxillary sinus to the inferior lid of the right eyelid EARS: External ear normal. External auditory canals clear, tympanic membranes pearly gonzalez without erythema or effusion bilaterally. EYES: Pupils equal round and reactive to light and accommodation. Conjunctivae without injection, sclerae without icterus. Extraocular movements intact. NOSE: Patent, turbinates without inflammation or discharge. MOUTH: Minimal trismus noted. Mucous membranes moist. Tonsils are not enlarged. Pharynx without erythema, blood, or exudate. Uvula midline. Airway patent. Dentition overall fair repair. NECK: Supple without nuchal rigidity. Mild right-sided lymphadenopathy appreciated. Right-sided neck is mildly tender. HEART: Regular rate and rhythm without murmurs gallops or rubs. LUNGS: Clear to auscultation bilaterally without wheezes, rales or rhonchi. No retractions or accessory muscle use. Medical Decision & Procedures ER Provider Diagnostic Interpretation: SOFT TISSUE NECK WITH CLINICAL HISTORY: 46 years-old Female presenting with Right side facial swelling/dental infx?. TECHNIQUE: Multidetector CT of the neck was performed after the administration of intravenous contrast. IV contrast: 110 mL of Optiray 320. A dose lowering technique was used consistent with the principles of ALARA (as low as reasonably achievable). COMPARISON: 04/29/2011. CT DOSE (mGy.cm): The estimated cumulative dose is 576.55 mGy.cm. FINDINGS: [employer] topogram: Unremarkable. Mucosal thickening in the right maxillary sinus and minimally in the left maxillary sinus. Extensive inflammatory change along the right face with a focal rim-enhancing 2.7 x 1.8 cm fluid collection along the buccal aspect of the right maxilla, consistent with abscess. No apparent cortical defect in the adjacent maxilla or lateral wall of the right maxillary sinus. Minimal periapical lucency noted at the right maxillary second molar, which may be the source of the presumed odontogenic infection. No other periapical abscess is noted in the maxillary or mandibular teeth. Deep tissue planes of the face are preserved. The fat within the right pterygopalatine fossa is preserved although the fluid collection minimally tracks toward the right lateral pterygoid muscle. Multiple prominent lymph nodes, right greater than left, likely reactive. Mild subcutaneous infiltration extends to the submandibular region but not to the superior mediastinum. Retropharyngeal space preserved. Vessels patent. Subcentimeter nodule in the right thyroid lobe as well as a few additional tiny thyroid nodules. Limited intracranial evaluation within normal limits. Cervical spine normal. Lung apices clear. IMPRESSION: Findings most consistent with odontogenic abscess in the right maxillary region measuring up to 2.7 cm. This is associated with adjacent periapical lucency/periapical abscess at the right maxillary second molar, which is the presumed source of infection, though no cortical breakthrough in the maxilla is apparent. Reactive lymph nodes. Laboratory Results 01/23/17 02:25 Red Blood Count 4.57, Mean Corpuscular Volume 61.5, Mean Corpuscular Hemoglobin 19.9, Mean Corpuscular Hemoglobin Concent 32.4, Neutrophils (%) (Auto) 85.1, Lymphocytes (%) (Auto) 6.7, Monocytes (%) (Auto) 7.4, Eosinophils (%) (Auto) 0.4 , Basophils (%) (Auto) 0.2, Neutrophils # (Auto) 10.51, Lymphocytes # (Auto) 0.83, Monocytes # (Auto) 0.92, Eosinophils # (Auto) 0.05, Basophils # (Auto) 0.02 01/23/17 02:25 Test 01/23/17 02:25 01/23/17 02:43 White Blood Count 12.36 K/uL (4.8-10.8) Red Blood Count 4.57 M/uL (4.2-5.4) Hemoglobin 9.1 g/dL (12.0-16.0) Hematocrit 28.1 % (37-47) Mean Corpuscular Volume 61.5 fL (80-100) Mean Corpuscular Hemoglobin 19.9 pg (25-34) Mean Corpuscular Hemoglobin Concent 32.4 g/dl (32-36) Platelet Count 475 K/uL (130-400) Neutrophils (%) (Auto) 85.1 % Lymphocytes (%) (Auto) 6.7 % Monocytes (%) (Auto) 7.4 % Eosinophils (%) (Auto) 0.4 % Basophils (%) (Auto) 0.2 % Neutrophils # (Auto) 10.51 K/uL (1.4-6.5) Lymphocytes # (Auto) 0.83 K/uL (1.2-3.4) Monocytes # (Auto) 0.92 K/uL (0.11-0.59) Eosinophils # (Auto) 0.05 K/uL (0-0.5) Basophils # (Auto) 0.02 K/uL (0-0.2) RDW Standard Deviation 34.8 fL (36.4-46.3) RDW Coefficient of Variation 15.9 % (11.5-14.5) Immature Granulocyte % (Auto) 0.2 % Immature Granulocyte # (Auto) 0.03 K/uL (0.00-0.02) Hypochromasia PRESENT Microcytosis PRESENT Ovalocytes 1+ Anion Gap 7.0 mmol/L (3-11) Est Creatinine Clear Calc Drug Dose 116.9 ml/min Estimated GFR () 127.8 Estimated GFR (Non- 110.3 BUN/Creatinine Ratio 16.2 (10-20) Calcium Level 8.5 mg/dl (8.5-10.1) Total Bilirubin 0.6 mg/dl (0.2-1) Aspartate Amino Transf (AST/SGOT) 6 U/L (15-37) Alanine Aminotransferase (ALT/SGPT) 16 U/L (12-78) Alkaline Phosphatase 72 U/L (45-117) Total Protein 7.0 gm/dl (6.4-8.2) Albumin 3.5 gm/dl (3.4-5.0) Globulin 3.5 gm/dl (2.5-4.0) Albumin/Globulin Ratio 1.0 (0.9-2) Bedside Lactic Acid Venous 0.80 mmol/L (0.90-1.70) Medications Administered Medications (Trade) Dose Ordered Sig/Binh Route Start Time Stop Time Status Last Admin Dose Admin Sodium Chloride 1,000 ml @ 999 mls/hr Q1H1M ONCE IV 01/23/17 02:15 01/23/17 03:15 DC 01/23/17 02:15 999 MLS/HR Morphine Sulfate (MoRPHine SULFATE INJ) 4 mg NOW ONCE IV 01/23/17 02:15 01/23/17 02:16 DC 01/23/17 02:15 4 MG Ondansetron HCl (Zofran Inj) 4 mg NOW STAT IV 01/23/17 02:04 01/23/17 02:10 DC 01/23/17 02:04 4 MG Ceftriaxone Sodium (Rocephin Inj) 1 gm NOW STAT IV 01/23/17 02:04 01/23/17 02:10 DC 01/23/17 02:04 1 GM Metronidazole (Flagyl / Nss) 500 mg NOW STAT IV 01/23/17 02:04 01/23/17 02:10 DC 01/23/17 02:04 500 MG Clindamycin Phosphate 900 mg/ Dextrose 106 ml @ 100 mls/hr NOW ONCE IV 01/23/17 02:15 01/23/17 03:18 DC 01/23/17 02:15 100 MLS/HR Morphine Sulfate (MoRPHine SULFATE INJ) 4 mg NOW ONCE IV 01/23/17 04:00 01/23/17 04:01 DC 01/23/17 04:00 4 MG Morphine Sulfate (MoRPHine SULFATE INJ) 4 mg NOW ONCE IV 01/23/17 05:30 01/23/17 05:31 DC 01/23/17 05:30 4 MG ED Course Physical exam and history were performed. Nursing notes, EMR, and Medication List were personally reviewed. Patient appears to have extensive right-sided facial and periorbital swelling on examination. She is essentially afebrile here in the department, however her symptoms appear to be rapidly advancing as she did not have symptoms about 6 hours ago. The patient is allergic to penicillin and sulfas. She is failing outpatient clindamycin. IV access was established and labs were obtained. Blood cultures were gathered. The patient was hydrated with normal saline. She was given IV morphine, IV ceftriaxone, IV Flagyl, and a high dose of IV clindamycin. Because of her symptoms I did elect to perform a CT scan to further evaluate her symptoms. The patient's blood work is as above and was reviewed. She has a minimally elevated white blood cell count. There is anemia, but evidently she has a history of thalassemia. She does not have other significant findings with labs. Her lactic acid is negative. CT scan is as above and does show a right- sided facial abscess as well as submandibular swelling. I did reevaluate the patient multiple times throughout the course of her stay, and she continued to have a patent airway and did feel much better after the above interventions. I discussed the case with the on-call ENT, and they will follow along if airway management is required. I discussed the case with the on-call hospitalist who agreed to evaluate the patient here in the department. I attempted to contact oral maxillofacial surgery, however we do not have that service available [employer] [facility]. The hospitalist will admit the patient for further care and management. Please see their dictation for the patient course, plan, and disposition. The chart was completed utilizing Auto [employer] Speech Voice Recognition Software. Grammatical errors, random word insertions, pronoun errors, and incomplete sentences are an occasional consequence of this system due to software limitations, ambient noise, and hardware issues. Any formal questions or concerns about the content, text, or information contained within the body of this dictation should be directly addressed to the provider for clarification. . Medical Decision Differential diagnosis: Etiologies such as cellulitis, abscess, Ludwigs, MRSA infection, DVT, necrotizing fasciitis, dermatitis, drug eruption, as well as others were entertained.. Impression Primary Impression: Facial abscess Additional Impression: Submandibular swelling Departure Information Dispostion Still a Patient Referrals Jeny Mosher C.R.N.P. (PCP) Forms HOME CARE DOCUMENTATION FORM, IMPORTANT VISIT INFORMATION Patient Instructions [facility] Problem Qualifiers
[2017-01-24] MEDS: IMIPENEM/CILASTATIN IV 500 MG in DEXTROSE 5% 100ML 100 ML IV SCH ×4 (02:11→20:13)
[2017-01-24 06:54] LABS: CREATININE 0.53 mg/dl (0.60-1.20)
[2017-01-24 07:30] VITALS: BP_SYST 112; BP_SYST 122; BP_DIAS 66; BP_DIAS 73; PULSE 80; PULSE 87; TEMP 37.9; O2SAT 100; O2SAT 95
[2017-01-24] MEDS: CETIRIZINE HCL 10 MG TAB PO SCH (08:17)
[2017-01-24] MEDS: CITALOPRAM 40 MG TAB PO SCH (08:17)
[2017-01-24] MEDS: BuPROPion SR 150 MG TABCR PO SCH (08:17)
[2017-01-24] MEDS: SPIRONOLACTONE 25 MG TAB PO SCH ×2 (08:17→17:00)
[2017-01-24] MEDS: VANCOMYCIN INJ 1,500 MG in SODIUM CHLORIDE 0.9% 500ML 500 ML IV SCH ×2 (08:19→20:13)
[2017-01-24] MEDS: ACETAMINOPHEN 325 MG TAB PO PRN ×2 (08:24→17:02)
[2017-01-24 08:25] VITALS: TEMP 38.1
[2017-01-24 09:24] LABS: HEMATOCRIT 25.9 % (37-47); MEAN CELL VOLUME 61.7 fL (80-100); MEAN CORPUSCULAR HGB CONC 32.4 g/dl (32-36); WHITE BLOOD COUNT 7.56 K/uL (4.8-10.8)
[2017-01-24 09:55] VITALS: TEMP 37.6
[2017-01-24] MEDS ORDERED: PANTOprazole INJ 40 MG in SYRINGE 0 ML IV SCH (11:00)
[2017-01-24 11:02] VITALS: TEMP 37
[2017-01-24 11:24] LABS: PLATELET COUNT 420 K/uL (130-400)
[2017-01-24] MEDS ORDERED: IV FLUIDS COMPLETED PRN (14:00)
--- NOTE | 2017-01-24 14:53 | Family Medicine Progress Note ---
Progress Note Date of Service Jan 24, 2017. Subjective Pt evaluation today including: conversation w/ patient, conversation w/ family , physical exam, chart review, conversation w/ application security consultant, review of inpatient medication list Pain: none PO Intake: crackers Voiding: no voiding problems Patient with decreased pain and swelling Did spike a fever of 38.1 this morning Spoke to Dr. Richardson this morning and patient able to eat and will f/u with him as outpatient Patient told us she has Thalassemia this morning Constitutional: + chills, + sweats, No fever Eyes: No worsening of vision ENT: + dental problems, + trouble swallowing, + problem reported (neck feels swollen), No hearing loss, No nasal symptoms Respiratory: No cough, No sputum, No shortness of breath Cardiovascular: No chest pain, No edema Abdomen: No pain, No nausea, No vomiting, No diarrhea Female : No dysuria, No urinary frequency Heme: No abnormal bleeding/bruising, No clotting problems Skin: No rash, No itch, No new/changing skin lesions Medications Current Inpatient Medications Medications (Trade) Dose Ordered Sig/Binh Route Start Time Stop Time Status Last Admin Dose Admin Ioversol (Optiray 320) 100 ml UD PRN IV 01/23/17 02:15 01/27/17 02:14 Acetaminophen (Tylenol Tab) 650 mg Q4H PRN PO 01/23/17 05:45 02/22/17 05:44 01/24/17 08:24 650 MG Al Hydrox/Mg Hydrox/Simethicone (Maalox Max Susp) 15 ml Q4H PRN PO 01/23/17 05:45 02/22/17 05:44 Magnesium Hydroxide (Milk Of Magnesia Susp) 30 ml Q6H PRN PO 01/23/17 05:45 02/22/17 05:44 Polyethylene (Miralax Powder Packet) 17 gm DAILY PRN PO 01/23/17 06:00 02/22/17 05:59 Ondansetron HCl (Zofran Inj) 4 mg Q6H PRN IV 01/23/17 05:45 02/22/17 05:44 Bupropion HCl (Wellbutrin-Sr Tab) 300 mg QAM PO 01/23/17 08:00 02/22/17 08:59 01/24/17 08:17 300 MG Citalopram Hydrobromide (celeXA TAB) 40 mg QAM PO 01/23/17 08:00 02/22/17 08:59 01/24/17 08:17 40 MG Spironolactone (Aldactone Tab) 50 mg BIDM PO 01/23/17 08:00 02/22/17 07:59 01/24/17 08:17 50 MG Morphine Sulfate (MoRPHine SULFATE INJ) 4 mg Q2H PRN IV 01/23/17 05:45 02/06/17 05:44 01/23/17 15:42 4 MG Imipenem/ Cilastatin Sodium 500 mg/Dextrose 110 ml @ 100 mls/hr Q6H IV 01/23/17 08:00 02/02/17 07:59 01/24/17 13:15 100 MLS/HR Miscellaneous (Iv Fluids Completed) 1 ea PRN PRN N/A 01/23/17 06:30 01/23/18 06:29 01/23/17 16:10 1 EA Vancomycin HCl (Consult) 1 ea UD PRN N/A 01/23/17 10:45 02/22/17 10:44 Vancomycin HCl 1500 mg/Sodium Chloride 530 ml @ 200 mls/hr Q10H IV 01/24/17 00:00 02/03/17 00:00 01/24/17 08:19 200 MLS/HR Cetirizine HCl (zyrTEC TAB) 10 mg QAM PO 01/24/17 08:00 02/23/17 07:59 01/24/17 08:17 10 MG Miscellaneous (Iv Fluids Completed) 1 ea PRN PRN N/A 01/24/17 14:00 01/24/18 13:59 Objective Vital Signs Date Time Temp Pulse Resp B/P (MAP) Pulse Ox O2 Delivery O2 Flow Rate FiO2 01/24/17 11:02 37.0 01/24/17 09:55 37.6 01/24/17 08:25 38.1 01/24/17 08:00 Room Air 01/24/17 07:30 37.9 80 16 122/66 (84) 100 Room Air 01/24/17 00:00 Room Air 01/23/17 23:54 37.1 74 18 125/75 (92) 100 Room Air 01/23/17 16:00 95 Room Air 01/23/17 15:21 37.2 76 18 114/68 (83) 95 Room Air Physical Exam General Appearance: WD/WN, no apparent distress Eyes: + pertinent finding (mild swelling under right eye) ENT: hearing grossly normal, + pertinent finding (right cheek swollen and tender to palpation, difficulty with fully opening mouth (able to open a little) , drain in place on right side of mouth, submandibular lymphadenopathy bilaterally) Respiratory/Chest: lungs clear, no respiratory distress, no accessory muscle use Cardiovascular: regular rate, rhythm, no edema, no JVD, no murmur Abdomen: normal bowel sounds, non tender, soft Neurologic/Psychiatric: alert, normal mood/affect, oriented x 3 Laboratory Results Results Past 24 Hours Test 01/24/17 05:56 Range/Units White Blood Count 7.56 4.8-10.8 K/uL Red Blood Count 4.20 4.2-5.4 M/uL Hemoglobin 8.4 12.0-16.0 g/dL Hematocrit 25.9 37-47 % Mean Corpuscular Volume 61.7 80-100 fL Mean Corpuscular Hemoglobin 20.0 25-34 pg Mean Corpuscular Hemoglobin Concent 32.4 32-36 g/dl RDW Standard Deviation 34.8 36.4-46.3 fL RDW Coefficient of Variation 15.8 11.5-14.5 % Platelet Count 420 130-400 K/uL Creatinine 0.53 0.60-1.20 mg/dl Est Creatinine Clear Calc Drug Dose 134.5 ml/min Estimated GFR () 133.8 Estimated GFR (Non- 115.5 Assessment and Plan 46 year old female with right maxillary abscess with submandibular swelling post -root canal 10 days prior. I&D yesterday at bedside by Dr. Richardson. Drain was put in place. Right Maxillary Abscess s/p I&D with Dr. Richardson on 01/23/17 - Right Neville drain in place. - Dr. Richardson is available for questions at his personal cell phone (doctor use only: [phone]) - pt should follow up in office on Thursday. - Progress diet to regular with ground up food - c/w IV Primaxin + Vanco and awaiting ID recs for DC Abx. (Day #2) - Gram stain showed gram + cocci and gram +bacilli - will keep patient on IV antibiotics as she spiked temp this am Subcentimeter nodule in the right thyroid lobe as well as a few additional tiny thyroid nodules. - Recommend Outpatient follow up. - TSH in hospital will not have any diagnostic utility. Microcytic Anemia - patient with history of Thalassemia, she is unsure which type - she was told there is nothing to do about it as outpatient - Hgb 8.4 this morning and will continue to monitor Depression - Continue Wellbutrin - Continue Celexa Acne - Continue Spironolactone DVT Prophylaxis - SCD Knee, YAYA Hose Disposition Med Surg FULL CODE. Continued [facility] stay due to: multiple IV medications needed
[2017-01-24 16:28] VITALS: BP 117/71; PULSE 79; TEMP 37.5; O2SAT 98
[2017-01-24] MEDS ORDERED: VANCOMYCIN TROUGH SCH (19:30)
[2017-01-24 23:43] VITALS: BP 121/75; PULSE 71; TEMP 37; O2SAT 98
[2017-01-25] MEDS: IMIPENEM/CILASTATIN IV 500 MG in DEXTROSE 5% 100ML 100 ML IV SCH ×4 (02:17→19:36)
[2017-01-25] MEDS: VANCOMYCIN INJ 1,500 MG in SODIUM CHLORIDE 0.9% 500ML 500 ML IV SCH ×3 (05:40→23:41)
[2017-01-25 06:37] LABS: HEMATOCRIT 27.2 % (37-47); MEAN CELL VOLUME 61.4 fL (80-100); MEAN CORPUSCULAR HEMOGLOBIN 19.9 pg (25-34); MEAN CORPUSCULAR HGB CONC 32.4 g/dl (32-36); PLATELET COUNT 458 K/uL (130-400); RED BLOOD COUNT 4.43 M/uL (4.2-5.4); WHITE BLOOD COUNT 3.55 K/uL (4.8-10.8)
[2017-01-25 07:03] LABS: CREATININE 0.45 mg/dl (0.60-1.20)
[2017-01-25] MEDS: BuPROPion SR 150 MG TABCR PO SCH (07:27)
[2017-01-25] MEDS: CETIRIZINE HCL 10 MG TAB PO SCH (07:27)
[2017-01-25] MEDS: CITALOPRAM 40 MG TAB PO SCH (07:27)
[2017-01-25] MEDS: SPIRONOLACTONE 25 MG TAB PO SCH ×2 (07:28→15:35)
[2017-01-25 08:35] VITALS: BP 118/77; PULSE 64; TEMP 36.9; O2SAT 99
--- NOTE | 2017-01-25 13:31 | Pharmacy Progress Note ---
Pharmacy Abx Dose Progress Nt Date of Service Jan 25, 2017. Pharmacy Dosing Scope The patient WAS receiving the following antimicrobial agents per Pharmacy consult: Vancomycin 1500 mg IV every Q10 hours. Dosing changed today per trough level. Objective Height (Feet): 5 Height (Inches): 3.00 Weight (Kilograms): 78.700 Vital Signs (Past 12Hrs) Vital Signs Past 12 Hours Date Time Temp Pulse Resp B/P (MAP) Pulse Ox O2 Delivery O2 Flow Rate FiO2 01/25/17 08:35 36.9 64 18 118/77 (91) 99 Room Air 01/25/17 08:00 Room Air Lab Results (24Hrs) Item Value Date Time Vancomycin Level Trough 9.9 mcg/ml 01/24/172002 Laboratory Tests (24 Hours) Test 01/25/17 06:24 White Blood Count 3.55 K/uL (4.8-10.8) L Micro Results Date/Time Source Procedure Growth Status 01/23/17 02:35 Blood Blood Culture - Preliminary NO GROWTH TO DATE. Resulted 01/23/17 02:25 Blood Blood Culture - Preliminary NO GROWTH TO DATE. Resulted 01/23/17 14:30 Aspirate - Other Mouth Gram Stain - Final Resulted 01/23/17 14:30 Bacterial Culture - Preliminary Alpha Strep. Not Enterococcus Resulted Assessment & Plan Assessment 46 year old female receiving Vancomycin for treatment of maxillary abscess. Day # 3/10 of antimicrobial therapy Plan Vancomycin IV * Trough level of 9.9 mcg/mL is subtherapeutic. * Change to Vancomycin 1500 mg IV every 8 hours * Goal trough level for abscess: 15 to 20 mcg/mL * Trough Vanco level ordered for: 01/26 at 1530. Pharmacy will continue to follow and will adjust dose/frequency as necessary. Thank you.
--- NOTE | 2017-01-25 14:34 | Family Medicine Progress Note ---
Progress Note Date of Service Jan 25, 2017. Subjective Pt evaluation today including: conversation w/ patient, physical exam, chart review, review of studies, conversation w/ application security consultant Pain: none PO Intake: ok Voiding: no voiding problems Patient feeling much better today Still having sweats overnight Swelling has gone down and pain has gone down Has some difficulty eating as she can open mouth very much but is able to swallow adequately Constitutional: + sweats, No fever, No chills ENT: + dental problems, No nasal symptoms, No sore throat, No trouble swallowing Respiratory: No cough, No shortness of breath Cardiovascular: No chest pain, No edema, No palpitations Abdomen: No pain, No nausea, No vomiting, No diarrhea Musculoskeletal: + swelling (rigth cheek), No joint pain Heme: No abnormal bleeding/bruising, No clotting problems Medications Current Inpatient Medications Medications (Trade) Dose Ordered Sig/Binh Route Start Time Stop Time Status Last Admin Dose Admin Ioversol (Optiray 320) 100 ml UD PRN IV 01/23/17 02:15 01/27/17 02:14 Acetaminophen (Tylenol Tab) 650 mg Q4H PRN PO 01/23/17 05:45 02/22/17 05:44 01/24/17 17:02 650 MG Al Hydrox/Mg Hydrox/Simethicone (Maalox Max Susp) 15 ml Q4H PRN PO 01/23/17 05:45 02/22/17 05:44 Magnesium Hydroxide (Milk Of Magnesia Susp) 30 ml Q6H PRN PO 01/23/17 05:45 02/22/17 05:44 Polyethylene (Miralax Powder Packet) 17 gm DAILY PRN PO 01/23/17 06:00 02/22/17 05:59 Ondansetron HCl (Zofran Inj) 4 mg Q6H PRN IV 01/23/17 05:45 02/22/17 05:44 Bupropion HCl (Wellbutrin-Sr Tab) 300 mg QAM PO 01/23/17 08:00 02/22/17 08:59 01/25/17 07:27 300 MG Citalopram Hydrobromide (celeXA TAB) 40 mg QAM PO 01/23/17 08:00 02/22/17 08:59 01/25/17 07:27 40 MG Spironolactone (Aldactone Tab) 50 mg BIDM PO 01/23/17 08:00 02/22/17 07:59 01/25/17 07:28 50 MG Morphine Sulfate (MoRPHine SULFATE INJ) 4 mg Q2H PRN IV 01/23/17 05:45 02/06/17 05:44 01/23/17 15:42 4 MG Imipenem/ Cilastatin Sodium 500 mg/Dextrose 110 ml @ 100 mls/hr Q6H IV 01/23/17 08:00 02/02/17 07:59 01/25/17 13:22 100 MLS/HR Miscellaneous (Iv Fluids Completed) 1 ea PRN PRN N/A 01/23/17 06:30 01/23/18 06:29 01/23/17 16:10 1 EA Vancomycin HCl (Consult) 1 ea UD PRN N/A 01/23/17 10:45 02/22/17 10:44 Cetirizine HCl (zyrTEC TAB) 10 mg QAM PO 01/24/17 08:00 02/23/17 07:59 01/25/17 07:27 10 MG Miscellaneous (Iv Fluids Completed) 1 ea PRN PRN N/A 01/24/17 14:00 01/24/18 13:59 Vancomycin HCl 1500 mg/Sodium Chloride 530 ml @ 200 mls/hr Q8H IV 01/25/17 16:00 02/02/17 15:59 Objective Vital Signs Date Time Temp Pulse Resp B/P (MAP) Pulse Ox O2 Delivery O2 Flow Rate FiO2 01/25/17 08:35 36.9 64 18 118/77 (91) 99 Room Air 01/25/17 08:00 Room Air 01/25/17 00:00 Room Air 01/24/17 23:43 37.0 71 18 121/75 (90) 98 Room Air 01/24/17 16:28 37.5 79 16 117/71 (86) 98 Room Air 01/24/17 15:25 Room Air Physical Exam Notes: General Appearance: WD/WN, no apparent distress ENT: hearing grossly normal, + pertinent finding (right cheek swollen and mildly tender to palpation, difficulty with fully opening mouth (able to open a little), drain in place on right side of mouth, submandibular lymphadenopathy bilaterally) Respiratory/Chest: lungs clear, no respiratory distress, no accessory muscle use Cardiovascular: regular rate, rhythm, no edema, no JVD, no murmur Abdomen: normal bowel sounds, non tender, soft Neurologic/Psychiatric: alert, normal mood/affect, oriented x 3 Laboratory Results Results Past 24 Hours Test 01/24/17 20:03 01/25/17 06:24 Range/Units Vancomycin Level Trough 9.9 SEE COMMENT mcg/ml White Blood Count 3.55 4.8-10.8 K/uL Red Blood Count 4.43 4.2-5.4 M/uL Hemoglobin 8.8 12.0-16.0 g/dL Hematocrit 27.2 37-47 % Mean Corpuscular Volume 61.4 80-100 fL Mean Corpuscular Hemoglobin 19.9 25-34 pg Mean Corpuscular Hemoglobin Concent 32.4 32-36 g/dl RDW Standard Deviation 35.0 36.4-46.3 fL RDW Coefficient of Variation 15.7 11.5-14.5 % Platelet Count 458 130-400 K/uL Creatinine 0.45 0.60-1.20 mg/dl Est Creatinine Clear Calc Drug Dose 158.4 ml/min Estimated GFR () 141.2 Estimated GFR (Non- 121.9 Assessment and Plan 46 year old female with right maxillary abscess with submandibular swelling post -root canal 10 days prior. I&D yesterday at bedside by Dr. Richardson. Drain was put in place. Right Maxillary Abscess s/p I&D with Dr. Richardson on 01/23/17 - Right [place]ad[place] drain in place. - Dr. Richardson is available for questions at his personal cell phone (doctor use only: [phone]) - pt should follow up in office on Thursday. - Progress diet to regular with ground up food - c/w IV Primaxin + Vanco and awaiting sensitivities (likely to be resulted tomorrow) (Day #3) - Gram stain showed gram + cocci and gram +bacilli - will keep patient on IV antibiotics until sensitivities return - failed clindamycin treatment and has allergy to penicillin therefore cant use augmentin so will have to wait for sensitivities Subcentimeter nodule in the right thyroid lobe as well as a few additional tiny thyroid nodules. - Recommend Outpatient follow up. - TSH in hospital will not have any diagnostic utility. Microcytic Anemia - patient with history of Thalassemia, she is unsure which type - she was told there is nothing to do about it as outpatient - Hgb 8.8 this morning and will continue to monitor - will need to f/u with PCP as outpatient to get haematology referral for possible transfusions as outpatient Depression - Continue Wellbutrin - Continue Celexa Acne - Continue Spironolactone DVT Prophylaxis - SCD Knee, YAYA Hose Disposition Med Surg FULL CODE. Continued [facility] stay due to: multiple IV medications needed
[2017-01-25 16:13] VITALS: BP 115/74; PULSE 72; TEMP 36.7; O2SAT 99
[2017-01-25 23:11] VITALS: BP 109/66; PULSE 66; TEMP 36.8; O2SAT 99
[2017-01-26] MEDS: IMIPENEM/CILASTATIN IV 500 MG in DEXTROSE 5% 100ML 100 ML IV SCH ×2 (03:36→07:46)
[2017-01-26 07:38] LABS: HEMATOCRIT 27.4 % (37-47); MEAN CELL VOLUME 61.3 fL (80-100); MEAN CORPUSCULAR HEMOGLOBIN 19.7 pg (25-34); MEAN CORPUSCULAR HGB CONC 32.1 g/dl (32-36); PLATELET COUNT 477 K/uL (130-400); RED BLOOD COUNT 4.47 M/uL (4.2-5.4); WHITE BLOOD COUNT 4.19 K/uL (4.8-10.8)
[2017-01-26] MEDS: VANCOMYCIN INJ 1,500 MG in SODIUM CHLORIDE 0.9% 500ML 500 ML IV SCH (07:45)
[2017-01-26] MEDS: CETIRIZINE HCL 10 MG TAB PO SCH (07:46)
[2017-01-26] MEDS: CITALOPRAM 40 MG TAB PO SCH (07:46)
[2017-01-26] MEDS: BuPROPion SR 150 MG TABCR PO SCH (07:46)
[2017-01-26] MEDS: SPIRONOLACTONE 25 MG TAB PO SCH (07:46)
[2017-01-26 08:06] VITALS: BP 113/70; PULSE 61; TEMP 36.7; O2SAT 100
[2017-01-26 08:13] LABS: CREATININE 0.5 mg/dl (0.60-1.20)
--- NOTE | 2017-01-26 09:37 | Discharge Instructions ---
Discharge Instructions Date of Service Jan 26, 2017. Admission Reason for Admission: Facial Abscess, Submandibular Swelling Discharge Discharge Diagnosis / Problem: Facial Abscess Discharge Goals Goal(s): Decrease discomfort, Improve function, Increase independence, Improve disease control, Improve nutritional status, Learn about illness Activity Recommendations Activity Limitations: per Instructions/Follow-up section . Instructions / Follow-Up Instructions / Follow-Up Please keep your appointment with Dr. Richardson today. You will be discharged on Antibiotics. Please take these antibiotics as prescribed. Please follow up with Dr. Richardson regarding removal of the infected tooth. Current Hospital Diet Patient's current hospital diet: Regular Diet Discharge Diet Recommended Diet: Regular Diet (Please eat a dental soft diet - (foods that do not require extensive chewing)) Pending Studies Studies pending at discharge: no Medical Emergencies . Who to Call and When: Medical Emergencies: If at any time you feel your situation is an emergency, please call 911 immediately. . Non-Emergent Contact Non-Emergency issues call your: Primary Care Provider, Specialist ([facility] [place] surgeon Dr. Richardson) . . "Provider Documentation" section prepared by Jose Escalona. . VTE Core Measure Inpt VTE Proph given/why not?: SERENA Ramos's Resident Involvement: Resident Care Provided Care Provided: Adult Hospital Medicine
[2017-01-26] MEDS ORDERED: CLIN300C2 PO (09:39)
[2017-01-26 10:06] VITALS: BP 113/70; PULSE 61; TEMP 36.7; O2SAT 100
[2017-01-26] MEDS ORDERED: CLC/300 PO (10:11)
[2017-01-26] MEDS ORDERED: DOXY100C76 PO (10:12)
--- NOTE | 2017-01-26 10:44 | Progress Note ---
Subjective Date of Service: Jan 26, 2017. Subjective Pt evaluation today including: conversation w/ patient, conversation w/ family , physical exam, chart review, lab review pt seen in followup, much improved, asking to go home. remains on IV abx, s/p bedside I&D, culture with oral zane. blood cultures negative, eating, some drainage into mouth, able to swallow. no f/c. swelling almost completely resolved. all remaining ros reviewed and are negative. Problem List Medical Problems: (1) Odontalgia Status: Acute (2) Thalassemia minor Status: Chronic Objective Vital Signs Date Time Temp Pulse Resp B/P (MAP) Pulse Ox O2 Delivery O2 Flow Rate FiO2 01/26/17 10:06 36.7 61 20 100 Room Air 01/26/17 08:06 36.7 61 20 113/70 (84) 100 Room Air 01/26/17 00:22 Room Air 01/25/17 23:11 36.8 66 18 109/66 (80) 99 Room Air 01/25/17 20:59 Room Air 01/25/17 16:13 36.7 72 18 115/74 (88) 99 Room Air Physical Exam General Appearance: WD/WN, no apparent distress Eyes: normal inspection, EOMI Neck: supple Respiratory/Chest: lungs clear, normal breath sounds, no respiratory distress Cardiovascular: regular rate, rhythm, no edema Abdomen: soft Extremities: non-tender, normal inspection, no pedal edema Neurologic/Psychiatric: alert, oriented x 3 Skin: normal color, no rash Comments: facial swelling significantly improved Laboratory Results Item Value Date Time Gram Stain - Final Resulted 01/23/17 1430 Aspirate - Other Mouth Blood Culture - Preliminary Resulted 01/23/17 0235 Blood NO GROWTH TO DATE. Blood Culture - Preliminary Resulted 01/23/17 0225 Blood NO GROWTH TO DATE. Last 24 Hours Test 01/26/17 07:13 White Blood Count 4.19 K/uL Red Blood Count 4.47 M/uL Hemoglobin 8.8 g/dL Hematocrit 27.4 % Mean Corpuscular Volume 61.3 fL Mean Corpuscular Hemoglobin 19.7 pg Mean Corpuscular Hemoglobin Concent 32.1 g/dl RDW Standard Deviation 34.6 fL RDW Coefficient of Variation 16.1 % Platelet Count 477 K/uL Creatinine 0.50 mg/dl Est Creatinine Clear Calc Drug Dose 142.6 ml/min Estimated GFR () 136.4 Estimated GFR (Non- 117.7 Assessment and Plan (1) Facial abscess Assessment & Plan: would suggest d/c on clinda and doxy for 14 days. has ent eval followup in office scheduled. Continued [facility] stay due to: multiple IV medications needed
[2017-01-26] MEDS ORDERED: VANCOMYCIN TROUGH SCH (15:30)
--- NOTE | 2017-01-26 20:46 | Discharge Summary ---
Discharge Summary Date of Service Jan 26, 2017. (Jose Escalona M.D.) Discharge Summary Admission Date: Jan 24, 2017 at 13:46 Discharge Date: Jan 26, 2017 Discharge Disposition: Home Principal Diagnosis: odontogenic abscess Problems/Secondary Diagnoses: (1) Thalassemia minor Status: Chronic Immunizations: Have You Had Influenza Vaccine: Yes History of Tetanus Vaccine?: Unknown History of Pneumococcal: No History of Hepatitis B Vaccine: No Procedures: SOFT TISSUE NECK WITH CLINICAL HISTORY: 46 years-old Female presenting with Right side facial swelling/dental infx?. TECHNIQUE: Multidetector CT of the neck was performed after the administration of intravenous contrast. IV contrast: 110 mL of Optiray 320. A dose lowering technique was used consistent with the principles of ALARA (as low as reasonably achievable). COMPARISON: 04/29/2011. CT DOSE (mGy.cm): The estimated cumulative dose is 576.55 mGy.cm. FINDINGS: [employer] topogram: Unremarkable. Mucosal thickening in the right maxillary sinus and minimally in the left maxillary sinus. Extensive inflammatory change along the right face with a focal rim-enhancing 2.7 x 1.8 cm fluid collection along the buccal aspect of the right maxilla, consistent with abscess. No apparent cortical defect in the adjacent maxilla or lateral wall of the right maxillary sinus. Minimal periapical lucency noted at the right maxillary second molar, which may be the source of the presumed odontogenic infection. No other periapical abscess is noted in the maxillary or mandibular teeth. Deep tissue planes of the face are preserved. The fat within the right pterygopalatine fossa is preserved although the fluid collection minimally tracks toward the right lateral pterygoid muscle. Multiple prominent lymph nodes, right greater than left, likely reactive. Mild subcutaneous infiltration extends to the submandibular region but not to the superior mediastinum. Retropharyngeal space preserved. Vessels patent. Subcentimeter nodule in the right thyroid lobe as well as a few additional tiny thyroid nodules. Limited intracranial evaluation within normal limits. Cervical spine normal. Lung apices clear. IMPRESSION: Findings most consistent with odontogenic abscess in the right maxillary region measuring up to 2.7 cm. This is associated with adjacent periapical lucency/periapical abscess at the right maxillary second molar, which is the presumed source of infection, though no cortical breakthrough in the maxilla is apparent. Reactive lymph nodes. (Jose Escalona M.D.) Medication Reconciliation New Medications: Clindamycin HCl (Clindamycin HCl) 300 Mg Cap 1 CAP PO QID for 14 Days, #56 CAP Doxycycline Monohydrate (Monodox) 100 Mg Cap 100 MG PO BID for 14 Days, #28 CAP Continued Medications: Bupropion HCl (Bupropion HCl Sr) 150 Mg Tabcr 300 MG PO QAM Citalopram Hydrobromide (Celexa) 40 Mg Tab 40 MG PO QAM Oxycodone Immediate Rel Tab (Roxicodone Ir) 5 Mg Tab 1-2 TAB PO Q6H PRN for Severe Pain, #24 TAB Spironolactone (Spironolactone) 25 Mg Tab 50 MG PO AMPM Discontinued Medications: Clindamycin HCl (Clindamycin HCl) 300 Mg Cap 300 MG PO QID STARTED 01/14/17 FOR 10 DAYS. Methylprednisolone (Medrol) 4 Mg Tab 4 MG PO DIRECTED, TAB TAPERED DOSE-01/23-3 TABS, 01/24-2 TABS, 01/25-1 TAB. Discharge Exam The patient was seen and examined at bedside. No acute overnight events. Patient is resting comfortably in bed. Denies having any pain. Eating and urinating well. Understand plan of care and has follow up with Dr. Dylan wilkins. Review of Systems: Constitutional: No fever, No chills, No weight loss Eyes: No worsening of vision, No redness, No discharge ENT: No hearing loss, No unusual epistaxis, No nasal symptoms, No sore throat, No tinnitus, No trouble swallowing Respiratory: No cough, No sputum, No wheezing, No shortness of breath, No dyspnea on exertion, No dyspnea at rest Cardiovascular: No chest pain Abdomen: No pain, No nausea, No vomiting, No diarrhea, No constipation Musculoskeletal: No joint pain Genitourinary - Female: No hematuria Integumentary: No rash Physical Exam: General Appearance: WD/WN, no apparent distress Eyes: PERRL, EOMI, sclerae normal ENT: + pertinent finding (left sided face swelling has markedly reduced since I saw her 3 days prior, non tender cheecks, neck, ears, chin and orbits. Some lymphadenopathy noted on the left and ridge anterior cervical chain. ) Neck: supple, no adenopathy, thyroid normal, no JVD, no carotid bruits Respiratory/Chest: chest non-tender, lungs clear, normal breath sounds, no respiratory distress, no accessory muscle use Cardiovascular: regular rate, rhythm, no edema, no gallop, no JVD, no murmur , normal peripheral pulses Abdomen / GI: normal bowel sounds, non tender, soft, no organomegaly, no pulsatile mass Extremities: normal inspection, no calf tenderness, no pedal edema Neurologic/Psychiatric: cyber threat analyst II-XII nml as tested, no motor/sensory deficits , alert, oriented x 3 (Jose Escalona M.D.) Hospital Course 46 year old female with right maxillary abscess with submandibular swelling post -root canal 10 days prior. I&D at bedside by Dr. Richardson on January 23, 2017 at which time a drain was put in place. A gram stain of the abscess showed Gram positive cocci and gram positive bacilli - cultures yielded no sensitivities. Blood cultures were negative. Patient was discharged on a two week course of Doxycycline and Clindamycin. Follow up with Dr. Richardson at his office on January 26, 2017. In the hospital the patient received Primaxin and Vancomycin. The discharge Abx were recommended by Dr. Harry, Infectious Disease. Pt's hospital course is notable for steady clinical improvement. Patient was discharged in good condition. Patient's home medications, notably Celexa, Wellbutrin and Spironolactone were continued in the hospital. The patient has a documented Penicillin and Sulfa drug allergy in her chart. Lab work of note showed a hemoglobin between 8 and 9 with an MCV in the low 60s. Pt has a known family history of thalassemia. Patient may benefit from a Hematology referral from her PCP for further workup. Total Time Spent: Less than 30 minutes (25 minutes) This includes examination of the patient, discharge planning, medication reconciliation, and communication with other providers. (Jose Escalona M.D.) Resident Physician Supervision Note: I interviewed and examined the patient. Discussed with Dr. Escalona and agree with findings and plan as documented in the note. Any exceptions or clarifications are listed here: None Documented By: Nikolay Glynn feeling better has appt for tooth this afternoon pain controlled and able to take PO well enough to do OK at home vitals noted nad breathing unlabored no pallor or icterus, facial swelling (+) abscess - improving/stable on abx. for care of tooth this afternoon, abx as above. stable for home (Nikolay Glynn D.O.) Discharge Instructions Please refer to the electronic Patient Visit Report (Discharge Instructions) for additional information. (Jose Escalona M.D.) Follow-Up Dr. Richardson, today. PCP within one week. (Jose Escalona M.D.) Additional Copies To Shai Richardson D.M.D.; Jeny Mosher, C.R.N.PAdan Resident Involvement: Resident Care Provided Care Provided: Adult [facility] (Jose Escalona M.D.)
--- NOTE | 2017-01-30 14:03 | EDITING REQUIRED CODING QUERY ---
CODING QUERY To promote full compliance with coding requirements relating to patient care, provider participation is requested in all cases of loss claim clerk uncertainty. Please assist us with the question(s) below: Coding Question(s): Patient admitted with submandibular swelling/odontogenic infection status post root canal 10 days ago. Please document the etiology of the infection if known or suspected. Thank you! Eric Gipson [employer] [facility] Physician's Response(s): Ondontogenic infection is the root-cause etiology. See progress notes and d/c summary otherwise, thanks Principal Diagnosis: "_that condition established after study, to be chiefly responsible for occasioning the admission of the patient to the hospital for care." Co-Existing Principal Diagnosis: "_when two or more diagnoses equally meet the criteria for principal diagnosis as determined by the circumstances of admission, diagnostic work up, and/or therapy provided, and the Alphabetic Index, Tabular List, or another coding guideline does not provide sequencing direction, any one of the diagnoses may be sequenced first." "When the physician has documented what appears to be a current diagnosis in the body of the record, but has not included the diagnosis in the final diagnostic statement, the physician should be asked whether the diagnosis should be added." (Source [facility]oding [facility] 2 QTR90. p3-4)
== END 2017-01-26 10:25 | disposition home or self-care (01) | DRG 138 ==
LOC: C.EDB 01:50 → C.4E 05:37 → ENRESERV 06:23 → OBSVTOIN 01-24 13:46
PROVIDERS: ADMIT Student in an Organized Health Care Education/Training Program; ATTEND Family Medicine
PROC: 0W9300Z Drainage of Oral Cavity and Throat with Drainage Device, Open Approach (ICD-10-PCS; principal; 2017-01-23)
DX: K04.7 Periapical abscess without sinus (principal); D56.3 Thalassemia minor; L70.9 Acne, unspecified; E04.1 Nontoxic single thyroid nodule; F32.9 Major depressive disorder, single episode, unspecified; Z88.0 Allergy status to penicillin; Z88.2 Allergy status to sulfonamides; Z98.890 Other specified postprocedural states

== ENCOUNTER → 2017-05-09 | Outpatient (CLI) | payer BC, OTHER ==
[~2017-05-09] MED LIST changes: -CLC/300 PO
== END | disposition home or self-care (01) ==
LOC: C.LABSPEC 12:58
PROVIDERS: ATTEND Internal Medicine
DX: R39.15 Urgency of urination (principal)

== ENCOUNTER → 2017-07-13 | Outpatient (CLI) | payer OTHER ==
--- NOTE | 2017-07-13 17:25 | DIAGNOSTIC IMAGING REPORT ---
C-SPINE ROUTINE 4 OR 5 VIEWS CLINICAL HISTORY: ACUTE NECK AND UPPER BACK PAIN WORSENING COMPARISON STUDY: No previous studies for comparison. FINDINGS: The prevertebral soft tissues are normal. No fractures or subluxations are visualized. There are degenerative changes at the C5-6 level with disc space narrowing and osteophyte formation. IMPRESSION: Degenerative changes at the C5-6 level. Electronically signed by: Lars Huertas M.D. 07/13/2017 5:24 PM Dictated Date/Time: 07/13/2017 5:23 PM
--- NOTE | 2017-07-13 17:26 | DIAGNOSTIC IMAGING REPORT ---
THORACIC SPINE 3 VIEWS ROUTINE CLINICAL HISTORY: ACUTE NECK AND UPPER BACK PAIN WORSENING COMPARISON STUDY: No previous studies for comparison. FINDINGS: The paraspinal line is not displaced. No fractures or subluxations are visualized. Minor degenerative changes are evident. No destructive lesions are visualized IMPRESSION: 1. No fractures or subluxations 2. No destructive lesions are visualized Electronically signed by: Lars Huertas M.D. 07/13/2017 5:25 PM Dictated Date/Time: 07/13/2017 5:24 PM
== END | disposition home or self-care (01) ==
LOC: C.RAD 16:43
PROVIDERS: ATTEND Chiropractor
DX: M54.2 Cervicalgia (principal); M54.6 Pain in thoracic spine

== ENCOUNTER → 2017-11-16 | Outpatient (CLI) | payer OTHER ==
[~2017-11-16] MED LIST changes: +OXYC-737 PO; -OXYC1TAB3 PO; +SPIR25TA6 PO; -SPR25 PO
== END | disposition home or self-care (01) ==
LOC: C.PATHSPEC 16:25
PROVIDERS: ATTEND Obstetrics & Gynecology
DX: R87.612 Low grade squamous intraepithelial lesion on cytologic smear of cervix (LGSIL) (principal)

== ENCOUNTER → 2017-12-09 | Outpatient (CLI) | payer OTHER | END | disposition home or self-care (01) | LOC: C.PATHSPEC 15:05 | PROVIDERS: ATTEND Obstetrics & Gynecology | DX: N93.8 Other specified abnormal uterine and vaginal bleeding (principal) ==